=== PATIENT | male | born 1970 | race Asian ===

== ENCOUNTER 2024-02-28 14:13 | Emergency (ER) | payer BC ==
[~2024-02-28] VITALS: Ht 172.7 cm; Wt 74.8 kg
[2024-02-28 14:36] VITALS: BP 144/91; PULSE 72; RESP 16; TEMP 97.3; O2SAT 98
[2024-02-28] MEDS: FLUORESCEIN OPTH STRIP 1 MG OP ONE (15:14)
[2024-02-28] MEDS: TETRACAINE HCL/PF 0.5% OPTH 4 ML BTL OP ONE (15:14)
[2024-02-28] MEDS ORDERED: CIPR10DR4 LEFT EYE (15:50)
[2024-02-28] MEDS ORDERED: IBUP-2213 PO (15:50)
[2024-02-28] MEDS ORDERED: BACI-418 TP (15:50)
[2024-02-28] MEDS: IBUPROFEN 600 MG TAB PO ONE (15:52)
== END 2024-02-28 16:15 | disposition home or self-care (01) ==
LOC: MED 14:13
DX: T15.02XA Foreign body in cornea, left eye, initial encounter (principal); W22.8XXA Striking against or struck by other objects, initial encounter; Y92.89 Other specified places as the place of occurrence of the external cause; Y93.89 Activity, other specified; Y99.8 Other external cause status
CPT/HCPCS: 90471; 90715; 99284